=== PATIENT | male | born 1995 | race American Indian/Alaskan Native ===

== ENCOUNTER 2022-05-04 19:58 | Emergency (ER) | payer OTHER ==
[2022-05-04 20:09] VITALS: BP 112/67
[2022-05-05] MEDS ORDERED: HYDROcodone/ACETAMINOPHEN 5-325 MG TAB PO STA (01:47)
[2022-05-05] MEDS ORDERED: KETOROLAC 60 MG/2 ML INJ IM STA (01:47)
--- NOTE | 2022-05-05 01:57 | Emergency Department Report ---
- General Chief Complaint: Back Pain/Injury Stated Complaint: BACK PAIN, DIZZINESS, SOB Time Seen by Provider: 05/04/22 23:38 Source: patient Mode of arrival: Ambulatory Limitations: No Limitations - History of Present Illness Initial Comments: 26-year-old male presents emerged department complaining of a couple day history of cough congestion coryza muscle aches with sick contacts and a suspicion for having contracted COVID. States he has been experiencing pain to his back area as well as a cause of his extremities and in the chest since the symptoms began he reports no hemoptysis or hematemesis no hematochezia, no nausea, no vomiting, no diarrhea. MD Complaint: cough, other -: Gradual Severity: moderate Quality: sharp, dull, aching Consistency: constant Improves With: nothing Worsens With: nothing Associated Symptoms: chills, myalgias, rhinorrhea, nasal congestion, cough, chest pain - Related Data Previous Rx's Medication Instructions Recorded Last Taken Type Albuterol Mdi (or & Nicu Only) 1 puff IH Q4-6H PRN #1 inha 05/05/22 Unknown Rx [ProAir HFA Inhaler] Azithromycin [Zithromax] 500 mg PO QDAY #5 tablet 05/05/22 Unknown Rx Ketorolac [Toradol] 10 mg PO Q6H PRN #15 tablet 05/05/22 Unknown Rx Allergies Allergy/AdvReac Type Severity Reaction Status Date / Time No Known Allergies Allergy Unverified 05/04/22 20:09 ED Review of Systems ROS: Stated complaint: BACK PAIN, DIZZINESS, SOB Other details as noted in HPI Comment: All other systems reviewed and negative ED Past Medical Hx - Medications Home Medications: Home Medications Medication Instructions Recorded Confirmed Last Taken Type Albuterol Mdi (or & Nicu Only) 1 puff IH Q4-6H PRN #1 inha 05/05/22 Unknown Rx [ProAir HFA Inhaler] Azithromycin [Zithromax] 500 mg PO QDAY #5 tablet 05/05/22 Unknown Rx Ketorolac [Toradol] 10 mg PO Q6H PRN #15 tablet 05/05/22 Unknown Rx ED Physical Exam - General Limitations: No Limitations General appearance: alert, in no apparent distress - Head Head exam: Present: atraumatic, normocephalic - Eye Eye exam: Present: normal appearance, PERRL, EOMI Pupils: Present: normal accommodation - ENT ENT exam: Present: normal exam, normal orophraynx, mucous membranes moist, TM's normal bilaterally - Neck Neck exam: Present: normal inspection, full ROM - Respiratory Respiratory exam: Present: normal lung sounds bilaterally. Absent: respiratory distress, wheezes, rales - Cardiovascular Cardiovascular Exam: Present: regular rate, normal rhythm. Absent: systolic murmur, diastolic murmur, rubs, gallop - GI/Abdominal GI/Abdominal exam: Present: soft, normal bowel sounds. Absent: tenderness, guarding - Rectal Rectal exam: Present: deferred - Extremities Exam Extremities exam: Present: normal inspection, normal capillary refill - Back Exam Back exam: Present: normal inspection. Absent: CVA tenderness (R), CVA tenderness (L) - Neurological Exam Neurological exam: Present: alert, oriented X3, CN II-XII intact, normal gait - Psychiatric Psychiatric exam: Present: normal affect, normal mood - Skin Skin exam: Present: warm, dry, intact, normal color. Absent: rash ED Course Vital Signs 05/04/22 05/05/22 20:06 01:51 Temperature 99.2 F Pulse Rate 92 H Respiratory 16 18 Rate Blood Pressure 112/67 [Right] O2 Sat by Pulse 100 Oximetry ED Medical Decision Making - Radiology Data Radiology results: report reviewed [facility] [address] [id number] XRay Report Signed Patient: DEEP LOYD R#: [id number] : 1995 Acct:[id number] Age/Sex: 26 / M ADM Date: 05/04/22 Loc: ED Attending Dr: Ordering Physician: SHIRA LOPEZ Date of Service: 05/04/22 Procedure(s): XR chest routine 2V Accession Number(s): [id number] cc: SHIRA LOPEZ Fluoro Time In Minutes: CHEST 2 VIEWS INDICATION / CLINICAL INFORMATION: COUGH AND SOB. COVID EXPOSURE. COMPARISON: None available. FINDINGS: SUPPORT DEVICES: None. HEART / MEDIASTINUM: Heart size and mediastinal contour appear within normal limits. LUNGS / PLEURA: No significant pulmonary or pleural abnormality. No pneumothorax. BONES: No significant osseous abnormality. ADDITIONAL FINDINGS: No significant additional findings. IMPRESSION: 1. No active cardiopulmonary disease. Signer Name: Martha Edwards II, MD Signed: 05/05/2022 4:05 AM Workstation Name: [id number] Transcribed By: ILIANA Dictated By: MARTHA EDWARDS II, MD Electronically Authenticated By: MARTHA EDWARDS II, MD Signed Date/Time: 05/05/22404 DD/ 3 TD/TT: - Medical Decision Making This patient presents to the emergency department with fever and lower respiratory symptoms concerning for viral syndrome including flu and COVID-19. Patient has suspicion and is for COVID-19 infection. Differential diagnosis includes other viral causes of lower respiratory symptoms, pneumonia, asthma, bronchitis. Patient is well-appearing with acceptable vitals, lacks comorbidities admission and a reassuring physical examination and is safe to be discharged home nasal swab for COVID testing is recommended. Provide strict return precautions and instructions on self isolation/quarantine and anticipato ry guidance. Critical care attestation.: If time is entered above; I have spent that time in minutes in the direct care of this critically ill patient, excluding procedure time. ED Disposition Clinical Impression: Viral syndrome Disposition: HOME / SELF CARE / HOMELESS Is pt being admited?: No Does the pt Need Aspirin: No Condition: Stable Instructions: Viral Respiratory Infection, Hand Washing, [id number], Viral Illness, Adult Referrals: KELLY LOU MD [Primary Care Provider] - 3-5 Days
--- NOTE | 2022-05-05 04:09 | XRay Report ---
CHEST 2 VIEWS INDICATION / CLINICAL INFORMATION: COUGH AND SOB. COVID EXPOSURE. COMPARISON: None available. FINDINGS: SUPPORT DEVICES: None. HEART / MEDIASTINUM: Heart size and mediastinal contour appear within normal limits. LUNGS / PLEURA: No significant pulmonary or pleural abnormality. No pneumothorax. BONES: No significant osseous abnormality. ADDITIONAL FINDINGS: No significant additional findings. IMPRESSION: 1. No active cardiopulmonary disease. Signer Name: Terry Cano II, MD Signed: 05/05/2022 4:05 AM Workstation Name: [id number]
== END 2022-05-05 05:15 | disposition home or self-care (01) ==
LOC: ED 19:58
DX: B34.9 Viral infection, unspecified (principal)
CPT/HCPCS: 71046; 96372; 99283; J1885